=== PATIENT | male | born 1935 | race Caucasian/White ===

== ENCOUNTER 2016-11-15 10:55 | Day surgery (SDC) | payer MEDICARE, OTHER ==
[~2016-11-15] VITALS: Ht 172.7 cm; Wt 71.0 kg
--- NOTE | ~2016-11-15 | OR ---
PATIENT'S NAME: MANPREET GRISSOM [facility] AGE: 81 Y [address] ROOM: [place] [address] LOCATION: [facility] [place] ADMIT DATE: 11/15/2016 OR/Procedure Report DISCHARGE DATE: FAMILY PHYSICIAN: Lali Sherman MD ATTENDING PHYSICIAN: Estrella Mancia SURGEON: Estrella Mancia MD [employer]: DATE OF PROCEDURE: 11/15/2016 PREOPERATIVE DIAGNOSES: 1. Bladder stone. 2. Benign prostatic hypertrophy with lower urinary tract symptoms. POSTOPERATIVE DIAGNOSES: 1. Bladder stone. 2. Benign prostatic hypertrophy with lower urinary tract symptoms. PROCEDURE PERFORMED: Cystolithotripsy and TURP. ANESTHESIA: Spinal. COMPLICATIONS: None. ESTIMATED BLOOD LOSS: 50 mL. INDICATION FOR PROCEDURE: The patient is an 81-year-old male with obstructive voiding symptoms along with episode of hematuria and a bladder stone. DETAILS OF PROCEDURE: After informed consent was obtained, the patient was taken to the operating room. A spinal anesthetic was applied, and he was placed in a dorsal lithotomy position. The groin area was prepped and draped in normal sterile fashion. A resectoscope sheath was introduced into the urethra and bladder without difficulty. The stone was identified in the bladder and the CyberWand was introduced. This was used to fragment the stone into multiple smaller pieces and sucked the fragments out. Following this once the stone was completely fragmented and removed, I then introduced a loop. Resection of the prostate was begun at the floor of the bladder neck to the level of the verumontanum. I then resected anterior tissue and finally lateral tissue. The bladder was irrigated free of chips and then I continued resecting down to the crossing fibers. Bleeding areas were fulgurated. I then again irrigated the bladder free of chips. At the end of the procedure, the patient had excellent voiding channel. A 24-Japanese Duncan catheter was placed on traction. The patient tolerated his procedure well and was transferred to recovery room in good condition. PATIENT'S NAME: MANPREET GRISSMO [facility] AGE: 81 Y [address] ROOM: [place] [address] LOCATION: [facility] [place] ADMIT DATE: 11/15/2016 OR/Procedure Report DISCHARGE DATE: FAMILY PHYSICIAN: Lali Sherman MD ATTENDING PHYSICIAN: Estrella Mancia MD CRISTINA WEAVER/modl /[id number] CC: Lali Sherman MD d: 11/15/16 2107 t: 12/03/16 1443, OPERATIVE SUMMARY
[~2016-11-15 10:55] MED LIST: PROSCAR5 MG PO
[2016-11-15 12:06] LABS: BASOPHIL % 0.4 %; EOSINOPHIL # 0.1 K/uL (0.0-0.5); EOSINOPHIL % 1.6 %; HEMOGLOBIN 14.9 g/dL (11.0-16.0); IMMATURE GRANULOCYTE % 0.1 %; LYMPHOCYTE # 2.2 K/uL (0.8-4.0); LYMPHOCYTE % 29.5 %; MCH 30.9 pg (27.0-34.0); MCHC 33.1 gm/dL (32.0-36.5); MCV 93.4 fl (83.0-98.0); MONOCYTE # 0.8 K/uL (0.0-1.0); MPV 9.8 fl (9.4-12.4); NEUTROPHIL # (ANC) 4.2 K/uL (1.4-9.0); NEUTROPHIL % 57.4 %; NRBC % 0 /100WBC (0-0.00); PLATELET COUNT 209 K/uL (150-450); RBC 4.82 M/uL (3.50-5.50); RDW-CV 12.8 % (11.9-14.6); WBC 7.3 K/uL (4.0-11.0)
[2016-11-15 12:20] LABS: ALBUMIN 3.7 gm/dL (3.5-5.0); ALK PHOS 87 IU/L (33-138); ALT 19 IU/L (12-78); ANION GAP 16.1 (10.0-19.0); AST 23 IU/L (10-40); BLOOD UREA NITROGEN 16 mg/dL (6-24); CHLORIDE 107 mMol/L (96-110); CO2 26 mMol/L (22-32); CREATININE 1.1 mg/dL (0.6-1.3); ESTIMATED GFR (MDRD EQUATION) > 60; POTASSIUM 4.1 mMol/L (3.7-5.1); SODIUM 145 mMol/L (135-145); TOTAL BILIRUBIN 0.7 mg/dL (0.0-1.5); TOTAL PROTEIN 7.3 g/dL (6.0-8.4)
--- NOTE | 2016-11-15 17:26 | NUR ---
Significant Event: Returned from PACU at 1630. Urine is a pale yellow, no clots. CBI running. Denies pain, Has sensation to the knee on the left and upper thigh on the right. Taking po fluids without N/V. VSS Follow up:Post-op vital continues.
--- NOTE | 2016-11-16 05:15 | NUR ---
Significant Event:Pt alert and oriented x3.pleasant with staff and cares. on bedrest at this time. cbi going. pt had in 7820 and 7300 out for a difference of 520. pt denies pain, vss, afebrile. pt hard of hearing. urine is light [place] color, pt takes medicaiton whole with no complications, uses call light approp. Follow up:
[2016-11-16] MEDS ORDERED: LEVAQUIN 250 M250 MG PO (09:04)
[2016-11-16] MEDS ORDERED: TYLENOL WITH C1 EACH PO (09:04)
--- NOTE | 2016-11-16 14:15 | NUR ---
D: DOCUMENTATION AND CARE MONITORED AND REVIEWED COMPLETED BY SN DORIAN I AGREE WITH DOCUMENTATION AND CHARTING.
--- NOTE | 2016-11-16 16:12 | NUR ---
Patient very pleasant and enjoys visiting. Patient denied pain until 1300, was then given a Sharon for the ride home. CBI was ordered to be removed at 0630. Urine was red with blood until around 0930 when it started to become clear with a very light pink shade. Staff educated patient about the proper cleansing for indwelling catheter. Patient was taught about how to properly drain cath bag and leg bag. Patient was taught about how to deflate balloon to remove catheter at home on Friday. Patient asked questions and showed understanding of the teachings. Patient was dismissed to go home with his at 1330. Afebrile and VSS throughout shift.
== END 2016-11-16 13:15 | disposition disaster alternative care site (69) ==
LOC: GMSU 10:55 → GSDC 10:55 → EDSTATUS 14:00 → GMSU 16:30 → GSDC 11-16 13:15
PROVIDERS: Urology
PROC: 0VT08ZZ Resection of Prostate, Via Natural or Artificial Opening Endoscopic (ICD-10-PCS; principal; 2016-11-15)
PROC: 0TCB8ZZ Extirpation of Matter from Bladder, Via Natural or Artificial Opening Endoscopic (ICD-10-PCS; 2016-11-15)
DX: N21.0 Calculus in bladder (principal); N40.1 Benign prostatic hyperplasia with lower urinary tract symptoms; N13.8 Other obstructive and reflux uropathy; Z98.890 Other specified postprocedural states
CPT/HCPCS: J1956; J2001; J7030; J7120